=== PATIENT | female | born 1955 | race Caucasian/White ===

== ENCOUNTER 2017-03-27 08:15 | Day surgery (SDC) | payer BC ==
[~2017-03-27] VITALS: Ht 170.2 cm; Wt 97.5 kg
--- NOTE | ~2017-03-27 | OP ---
PATIENT NAME: KEATON ORTEGA MEDICAL RECORD: [id number] :55 LOCATION:[facility] ADMISSION DATE: SURGEON: SOLE CORONA MD DATE OF OPERATION: 03/27/2017 PREOPERATIVE DIAGNOSIS: L1 compression fracture. POSTOPERATIVE DIAGNOSIS: L1 compression fracture. PROCEDURE: L1 kyphoplasty. SURGEON: Sole Corona MD LOCATION: [facility], Operating Room. DESCRIPTION OF TECHNIQUE: After induction of general endotracheal anesthesia, the patient was rolled prone on chest and hip rolls. The thoracic and lumbar spine were prepped and draped in usual sterile fashion. Fluoroscopic x-ray and Jamshidi needles were used to cannulate the pedicles at L1 on both sides. A bone drill was advanced under fluoroscopic x-ray and taken to cannula on both sides. Biopsies were sent to pathology for diagnosis. A kyphoplasty balloon was advanced through the cannula on both sides and inflated under fluoroscopic control. The balloons were deflated. The void created was back filled with methyl methacrylate bone cement with good position of the cement on fluoroscopic x-ray. The cannula were removed. Each of stab incision was closed with Steri-Strips and benzoin. A sterile dressing was applied to both the wounds. The patient was awakened in good condition and taken to recovery. All counts were reported as correct. Estimated blood loss was minimal. TRANSINT:[id number] Voice Confirmation ID: [id number] DOCUMENT ID: [id number] SOLE CORONA MD CC: [id number] DICTATION DATE: 03/28/17 1311 BURR GRINDER: 03/28/17 2204 [facility] 03/27/[address] [address]
[~2017-03-27 08:15] MED LIST: CIPRO500 MG PO; ZOLOFT100 MG PO
[2017-03-27 09:11] LABS: HEMATOCRIT 37.3 % (36.0-48.0); MCH 26.4 pg (26.0-34.0); MCHC 32.2 g/dL (31.0-37.0); MCV 82.2 fL (80.0-100.0); MEAN PLATELET VOLUME 9.6 fL (7.4-10.4); RBC 4.54 10x6/uL (4.00-5.40); RDW 15.2 % (11.5-14.5); WBC 7.2 10x3/uL (4.8-10.8)
[2017-03-27 09:37] VITALS: BP 131/58; Ht 170.2 cm; Wt 97.5 kg
[2017-03-27 09:43] LABS: CALC OSMOLALITY 284 mosm/kg (275-300); CALCIUM 8.7 mg/dL (8.5-10.1); CARBON DIOXIDE 24.6 mmol/L (21.0-32.0); CHLORIDE - SERUM 107 mmol/L (98-107); CREATININE - SERUM 0.8 mg/dL (0.6-1.3); GLUCOSE 112 mg/dL (74-106); POTASSIUM - SERUM 3.8 mmol/L (3.5-5.1); SODIUM 141 mmol/L (136-145); UREA NITROGEN 22 mg/dL (7-18); eGFR NON AFRICAN AMERICAN 77 mL/min (90-120)
[2017-03-27 11:39] LABS: APPEARANCE CLEAR (CLEAR); BILIRUBIN NEGATIVE (NEGATIVE); COLOR DK YELLOW (YELLOW); GLUCOSE NEGATIVE (NEGATIVE); KETONE NEGATIVE (NEGATIVE); LEUKOCYTE ESTERASE NEGATIVE (NEGATIVE); NITRITE NEGATIVE (NEGATIVE); PROTEIN NEGATIVE (NEGATIVE); SPECIFIC GRAVITY 1.015 (1.005-1.020); UROBILINOGEN NORMAL (NORMAL)
--- NOTE | 2017-03-27 13:27 | NUR ---
[address] ABDUL @ PT.'S BEDSIDE. Evan CARPENTER R.N.
== END 2017-03-27 14:30 | disposition home or self-care (01) ==
LOC: D.OPS 08:15
PROVIDERS: Anesthesiology
DX: M48.56XA Collapsed vertebra, not elsewhere classified, lumbar region, initial encounter for fracture (principal)